=== PATIENT | female | born 1985 | race Caucasian/White ===

== ENCOUNTER 2016-12-23 12:35 | Emergency (ER) | payer MEDICAID, OTHER ==
--- NOTE | 2016-12-23 12:56 | ERNOTE ---
Date of Service: 12/23/16 Time Seen by Provider: 12/23/16 12:54 Stated Complaint: ARM PAIN/SIDE PAIN Source: patient Exam Limitations: no limitations Immunizations: IMMUNIZATION HX Immunizations Up to Date Yes History of Influenza Vaccine Yes Hx Pneumococcal Vaccination No Allergies/Adverse Reactions: Allergies Sulfa (Sulfonamide Antibiotics) [Sulfa(Sulfonamide Antibiotics)] Allergy ( Verified 12/23/16 12:44) swelling Home Medications: HOME MEDICATIONS Budesonide/Formoterol Fumarate [Symbicort 160-4.5 Mcg Inhaler] 6 gm IH 12/23/16 [Last Taken Unknown] - History of Present Ilness Narrative: c.c. = cough and sore throat with L. sided rib and abdominal soreness. Cough and sore throat with some increased wheeze started yesterday. No known fever. She is on daily symbicort and this a.m. also used her albuterol mdi because she felt tight. 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 lateral , mid., chest pain that was worse with deep breath, or cough, or turning or twisting. It lasted 20 mins and is gone now except for when she coughs. Her cough is tight , n on productive. She says she also has had some runny nose with some sneezing since yesterday. She denies known seasonal allergies/hay fever . She denies other medical problems. She is not a smoker. Timing: gone now Review of Systems - Review of Systems Constitutional: Present: See HPI ENT: Present: nose congestion, nasal drainage, sore throat Respiratory: Present: cough, wheezing - mild Cardiology: Present: no symptoms reported, See HPI, chest pain - chest wall/ pleuritic pain Gastrointestinal/Abdominal: Present: no symptoms reported Genitourinary: Present: no symptoms reported Musculoskeletal: Present: See HPI Skin: Present: no symptoms reported - Patient's Past Medical History Patient History - Medical: Obesity Patient History - Cardiac/Respiratory: Asthma Patient History - Cancer: No Hx of Cancer Patient History - Surgical Procedures: Tubal Ligation, T & A Patient History - Other: None LMP (females 10-50): last week - Family History Mother Family History - Medical: No pertinent hx Father Family History - Cardiac/Respiratory: CVA/Stroke, Myocardial Infarction - Social History Living Situations: home Abuse History: No History of abuse Psych History: No pertinent hx Alcohol Use: none Drug Use: none - Immunizations Immunizations Up to Date: Yes Hx Pneumococcal Vaccination: No History of Influenza Vaccine: Yes Physical Exam - Physical Exam General Appearance: Present: wd/wn, alert, no apparent distress - pt is morbidly obese young lady, a & o & coop with red nose and occ harsh tight sounding cough but no dyspnea or tachypnea. VSS with elevated bp Eye Exam: Normal inspection: bilateral Ears, Nose, Throat: Present: nasal congestion, normal pharynx, other - red infalmed turbinates with mild clear nasal drainage. . Absent: pharyngeal erythema, pharyngeal swelling, tonsillar exudate, tonsillar swelling, dry mucous membranes Respiratory: Present: no respiratory distress, no accessory muscle use, wheezing - mild bibasilar exp wheeze . she also has mild left ant. lateral mid chest wall tendernesss to palpation and with cough. Cardiovascular/Chest: Present: regular rate, rhythm, no murmur Neurological Exam: Present: alert, oriented ED Progress - Results and Orders Patient's Lab Results:: I have reviewed the patient's lab results. Results and Orders: strep screen is negative. - Vital Signs Patient's Vital Signs:: I have reviewed the patient's vital signs. Vital Signs: Vital Signs 12/23/16 12/23/16 12:39 12:46 Temperature 36.8 C Pulse Rate 81 78 Respiratory 16 16 Rate Blood Pressure 151/79 O2 Sat by Pulse 98 97 Oximetry - Progress/Reassessment Chief Complaint: Upper Respiratory Symptoms Plan - Plan Plan: ADVISED HER TO WATCH HER BLOOD PRESSURE BUT TO BE SURE THAT WHO EVER CHECKS IT USES A LARGE ENOUGH CUFF. Departure - Departure Clinical Impression: Pain of anterior chest wall with respiration Upper respiratory infection Qualifiers: URI type: acute nasopharyngitis (common cold) Qualified Code(s): J00 - Acute nasopharyngitis [common cold] Asthma Qualifiers: Asthma severity: mild intermittent Asthma complication type: with acute exacerbation Qualified Code(s): J45.21 - Mild intermittent asthma with (acute) exacerbation Disposition: Home Follow Up Needed Condition: Good Instructions: Asthma, Acute Bronchospasm, Chest Wall Pain, [id number], Upper Respiratory Infection, Adult, [id number], Sore Throat, [id number] Additional Instructions: CONTINUE YOUR SYMBICORT BEFORE. USE YOUR RESCUE INHALER , 2 PUFFS EVERY 4-6 HOURS UNTIL NO WHEEZE OR TIGHTNESS. TRIAL OF TYLENOL OR MOTRIN OR ALEVE FOR CHEST WALL SORENESS AAS WELL WARM COMPRESS TO SORE AREA IF NEEDED. IF COUGHING , USE A PILLOW OR BLANKET , SPLINTED ( HELD AGAINST SORE RIB AREA) TO HELP CONTROL CHEST WALL DISCOMFORT. RETURN OR SEE FAMILY DOCTOR IF WORSE OR NOT IMPROVING ESPECIALLY IF FEVER DEVELOPS. THE STREP SCREEN IS NEGATIVE BUT WE WILL CHECK FURTHER BY DOING A STREP CULTURE AND IF THAT TURNS POSITIVE, WE WILL CALL YOU. GARGLE WITH WARM SALT WATER , USE CHLORASEPTIC SPRAY OR LOZENGES FOR SORE THROAT. Referrals: Idris Washington, [Primary Care Provider] -
--- OUTSIDE RECORDS SUMMARY | 2016-12-23 13:24 | XMS REPORT | Continuity of Care Document ---
:1985 Author Organization [facility] ([facility]) Address [place] [address] Phone [phone] Care Team Providers Name Role Phone Idris Washington Primary Care Provider [phone] Source Comments This disclosure is being made pursuant to the Care Everywhere program, applicable federal and state laws, and may not contain all informaitonavailable regarding this patient.[facility] ([facility]) Active Allergies and Adverse Reactions Allergen Noted Date Severity Reactions Comments Sulfa (Sulfonamide 11/14/2010 Urticaria (Hives) Reaction to sulfa as a Antibiotics) child. Current Medications Prescription Sig. Disp. Refills Start Date End Date Status albuterol (PROAIR Use 1-2 Puffs by 8.5 g 11 11/28/2015 Active HFA) 90 mcg/Actuation inhalation every 4 inhaler hours as needed. predniSONE 20 mg Take 2 tablets (40 10 tablet 0 09/30/2016 Active tablet mg total) by mouth daily. budesonide-formoterol Use 2 Puffs by 10.2 g 11 10/02/2016 Active (SYMBICORT) 160-4.5 inhalation 2 times mcg/Actuation inhaler daily. Active Problems Not on file Most Recent Encounters Date Type Specialty Providers Description 11/25/2016 Office Visit Med Pulmonary Maria Fernanda Daly, Chief Comp: Patient MD Reported Reason For Visit 10/02/2016 Telephone Med Pulmonary Maria Fernanda Daly, Dx: Moderate MD persistent asthma with acute exacerbation (Primary Dx) 09/30/2016 Office Visit Pathology Maria Fernanda Daly, Dx: Mild persistent MD asthma with status Lab Services, Pfp asthmaticus 09/30/2016 Office Visit Med Pulmonary Default, Other Dx: Mild persistent Billg - Defo asthma with status Maria Fernanda Daly asthmaticus (Primary MD Dx) 09/30/2016 Hospital Encounter Respiratory Therapy Default, Other Chief Comp : Patient Billg - Defo Reported Reason For Jenelle Goldstein, Lisa PARK Immunizations Name Dates Previously Given Next Due Influenza, unspecified 05/16/2015 Social History Tobacco Use Types Packs/Day Years Used Date Never Smoker Smokeless Tobacco: Never Used Alcohol Use Drinks/Week oz/Week Comments No Last Filed Vital Signs Vital Sign Reading Time Taken Blood Pressure 196/92 09/30/2016 10:58 AM [employer] 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 Pulse 81 09/30/2016 10:58 AM [employer] 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 Temperature 37.2 C (99 F) 09/30/2016 10:58 AM [employer] 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 Respiratory Rate 16 09/30/2016 10:58 AM [employer] 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 Height 1.7 m (5' 6.93") 09/30/2016 10:58 AM AMM[employer] 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 Weight 205 kg (451 lb 15.1 oz) 09/30/2016 10:58 AM AMM[employer]ITION 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 Body Mass Index 70.93 09/30/2016 10:58 AM AMM[employer]ITION 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 Oxygen Saturation 97% 09/30/2016 10:58 AM [employer] 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 Plan of Care Date Type Specialty Providers Description 12/30/2016 Appointment Med Pulmonary Maria Fernanda Daly MD Chief Comp: Patient [address] Rep[place] [address] [phone] (Fax) Health Maintenance Due Date Last Done Comments Hepatitis B Vaccine (1 of 3 - Primary Series) 1985 Tdap Vaccine 1996 Lipid Disorder Screening 12/22/2003 MMR Vaccine 12/22/2003 Td Vaccine 12/22/2003 Varicella Vaccine (1 of 2 - Adult - No Evidence of 12/22/2003 Immunity) Pneumococcal Vaccine (1 of 1 - PPSV23) 2004 Cervical Cancer Screening 12/22/2015 Influenza Vaccine: Seasonal (Season Ended) 2017 05/16/2015 Results from Last 3 Months DIFFERENTIAL (09/30/2016 12:19 PM) Component Value Range % Neutrophils-Auto Diff 57.0 % Neutrophils-Auto Diff 4510 2282-5653 /MM3 % Lymphocytes-Auto Diff 30.5 % Lymphocytes-Auto Diff 2410 875-3300 /MM3 % Monocytes-Auto Diff 5.9 % Monocytes-Auto Diff 470 130-860 /MM3 % Eosinophils-Auto Diff 5.8 % Eosinophils-Auto Diff 460(H) 40-390 /MM3 % Basophils 0.4 % Basophils-Auto Diff 30 10-136 /MM3 % Immature Granulocytes-Auto Diff 0.4 % Immature Granulocytes-Auto Diff 30 /MM3 Specimen Whole Blood CBC (COMPLETE BLOOD COUNT) (09/30/2016 12:19 PM) Component Value Range WBC Count 7.9 3.7-10.5 K/MM3 RBC Count 4.69 4.00-5.20 M/MM3 Hemoglobin 13.2 11.9-15.5 g/dL Hematocrit 40 35-47 % MCV (Mean Corpuscular Volume) 84 82-99 FL MCH (Mean Corpuscular Hemoglobin) 28 25-35 PG MCHC (Mean Corpuscular Hemoglobin Concentration) 33 32-36 % Platelet Count 328 150-400 K/MM3 MPV (Mean Platelet Volume) 10.2 9.4-12.3 FL RBC Dist Width-STD 42.9 36.4-46.3 FL RBC Distrib Width 14.0 9.0-14.5 % Nucleated RBC 0 /100 WBC Specimen Whole Blood CBC WITH DIFFERENTIAL (09/30/2016 12:19 PM) Specimen Whole Blood Narrative The following orders were created for panel order CBC WITH DIFFERENTIAL. Procedure Abnormality Status --------- ------ CBC (COMPLETE BLOOD COUNT)[[id number]] Final result DIFFERENTIAL[[id number]] AbnormalFinal result Please view results for these tests on the individual orders. IGE (09/30/2016 12:19 PM) Component Value Range IgE 71.4 0.0-100.0 IU/mL Specimen Blood PULMONARY FUNCTION TEST (PFT) (09/30/2016 10:14 AM) Component Value Range FVC Predicted 4.14 0.05-9.99 Liters FVC 3.38 0 - 12 Liters FVC %Predicted 82 0-300 % FVC Post 3.72 0 - 12 Liters FVC % Predicted Post 90 0-300 % FVC % Chng 10 0-300 % FEV1 Predicted 3.47 0.05-9.99 Liters FEV1 2.18 0 - 12 Liters FEV1% Predicted 63 0-300 % FEV1 Post BD 2.64 0 - 12 Liters FEV1 % Pred Post 76 0-300 % FEV1 % Chng 21 0-300 % FEV1/FVC Predicted 84 1-99 % FEV1/FVC 64 0 - 12 % FEV1/FVC Post 71 0 - 12 % FEF 25-75% Predicted 3.63 0-12 L/sec FEF 25-75% 1.25 0-12 L/sec FEF 25-75% %Pre Predicted 34 0-300 % FEF 25-75% Post 1.84 0-12 L/sec FEF 25-75% %Post Predicted 51 0-300 % FEF 25-75% Chng 48 0-300 % PEF Predicted 7.46 0-18 L/sec PEF Pre BD 5.48 0-18 L/sec PEF % Pre Predicted 73 0-300 % PEF Post BD 6.22 0-18 L/sec PEF %Post Predicted 83 0-300 % PEF %CHNG 14 0-300 % PIF PRE BD 4.07 0-18 L/sec PIF POST BD 4.02 0-18 L/sec PIF %CHNG -1 0-300 % FEV6 PRE 3.30 0 - 12 Liters MVV Predicted 139 0-300 L/min VC PREDICTED 4.14 0.05-9.99 Liters TLC Predicted 5.72 0.05-11.99 Liters RV Predicted 1.81 0.05-9.99 Liters RV/TLC Predicted 30 0-300 % FRC PL Predicted 0.82 0.05-9.99 Liters DLCO Predicted 26.1 0.05-99.99 mL/mmHg/min DLCO ADJ Predicted 26.1 1-2 mL/mmHg/min PI MAX Predicted 89 cmH2O
[2016-12-23 13:49] VITALS: BP 146/100
== END 2016-12-23 13:46 | disposition home or self-care (01) ==
LOC: ER 12:35
DX: R07.89 Other chest pain (principal); J00 Acute nasopharyngitis [common cold]; J45.21 Mild intermittent asthma with (acute) exacerbation

== ENCOUNTER 2018-02-27 12:21 | Observation (INO) ==
[2018-02-27] MEDS ORDERED: ALBUTEROL SULFATE/IPRATROPIUM 3 ML NEBU IH ONE ×3 (12:34→13:30)
--- NOTE | 2018-02-27 12:43 | ERNOTE ---
Date of Service: 02/27/18 Time Seen by Provider: 02/27/18 12:32 Stated Complaint: TROUBLE BREATHING Presenting Symptoms:: cough Source: patient Immunizations: IMMUNIZATION HX Immunizations Up to Date Yes History of Influenza Vaccine Yes Hx Pneumococcal Vaccination No Allergies/Adverse Reactions: Allergies Sulfa (Sulfonamide Antibiotics) [Sulfa(Sulfonamide Antibiotics)] Allergy ( Verified 02/27/18 12:28) swelling Home Medications: HOME MEDICATIONS Budesonide/Formoterol Fumarate [Symbicort 160-4.5 Mcg Inhaler] 6 gm IH DAILY 06/01 [Last Taken 02/27/18] Albuterol Sulfate [Ventolin Hfa] 1 puff IH PRN PRN 02/19/17 [Last Taken 02/27/18 ] Albuterol Sulfate [Albuterol Sulfate 2.5 MG/3 ML] 2.5 mg IH Q4H 10 Days #50 vial.neb 02/27/18 [Last Taken Unknown] Azithromycin [Zithromax] 500 mg PO NOW #6 tab 02/27/18 [Last Taken Unknown] predniSONE [Prednisone] 50 mg PO DAILY #5 tab 02/27/18 [Last Taken Unknown] - History of Present Ilness Narrative: 2-year-old female presents to the emergency room for wheezing and cough. Patient states that she has a history of asthma and today she has used her inhaler twice and has had no results. Patient states the symptoms started this morning. Patient states that normally her inhaler does help her. Date (Duration): 02/27/18 Timing: getting worse, intermittent Severity: mild Frequency/Possible Cause: Reports: occasional episodes Modifying Factors - Improves: Reports: nothing Associated Symptoms: Reports: cough, wheezing. Denies: chest pain/soreness, shortness of breath Review of Systems - Review of Systems Constitutional: Present: no symptoms reported EYE: Present: no symptoms reported ENT: Present: no symptoms reported Respiratory: Present: See HPI, cough, wheezing Cardiology: Present: no symptoms reported Gastrointestinal/Abdominal: Present: no symptoms reported Genitourinary: Present: no symptoms reported Musculoskeletal: Present: no symptoms reported Skin: Present: no symptoms reported Neurological: Present: no symptoms reported Endocrine: Present: no symptoms reported Hematologic/Lymphatic: Present: no symptoms reported Psych: Present: no symptoms reported All Other Systems: All systems neg except as marked Medical History (Last Updated 02/27/18 @ 12:30 by Charlee Christopher RN) Asthma History of cholecystectomy Surgical History: Surgical History (Last Updated 02/27/18 @ 12:30 by Charlee Christopher RN) Status post tendon repair Social History: Preferred Language French Do you have any denominational or No cultural preference? Smoking Status Never smoker Abuse History No History of abuse Psych History No pertinent hx Alcohol Use none Drug Use none Physical Exam - Physical Exam Narrative: Patients breathing is nonlabored but she does have expiratory and inspiratory wheezing throughout. The rest of her exam is unremarkable General Appearance: Present: wd/wn, alert, no apparent distress Head Exam: Present: normal inspection, no evidence of injury Eye Exam: Normal inspection: bilateral, PERRL: bilateral Ears, Nose, Throat: Present: normal ENT inspection, normal pharynx Neck: Present: normal inspection, nontender Respiratory: Present: no respiratory distress, no accessory muscle use, chest nontender, wheezing Cardiovascular/Chest: Present: regular rate, rhythm Gastrointestinal/Abdominal: Present: normal bowel sounds, nontender, nondistended, soft Back Exam: Present: normal inspection, normal range of motion, no CVA tenderness , no vertebral tenderness Extremity Exam: Present: normal inspection, non-tender, normal range of motion, no edema Neurological Exam: Present: alert, oriented, normal mood/affect, no motor/ sensory deficits Skin Exam: Present: normal color, warm/dry Lymphatic Exam: Present: no adenopathy ED Progress - Results and Orders Patient's Lab Results:: I have reviewed the patient's lab results. - Vital Signs Patient's Vital Signs:: I have reviewed the patient's vital signs. Vital Signs: Vital Signs 02/27/18 12:23 02/27/18 12:36 Temperature 36.6 C Pulse Rate 75 76 Respiratory Rate 20 20 Blood Pressure 173/107 H O2 Sat by Pulse Oximetry 95 95 - X-Ray X-Ray #1 X-Ray: chest Interpretation: Reviewed by me X-ray Comments: no acute process - Progress/Reassessment Chief Complaint: Upper Respiratory Symptoms Plan - Plan Plan: Patient still continues to have expiratory wheezes. States she feels like her chest is still rattling. After speaking with Dr. Washington he agrees patient to be admitted for abscess with [id number] neb treatments and will follow her there. Patient agrees to admission. Departure Clinical Impression: Bronchitis with asthma, acute - Departure Disposition: Still a patient Condition: Fair
[2018-02-27] MEDS ORDERED: METHYLPREDNISOLONE SOD SUCC/PF 40 MG/ML VIAL IM ONE (13:31)
[2018-02-27] MEDS ORDERED: METHYLPREDNISOLONE SOD SUCC/PF 125 MG/2 ML VIAL ONE (13:35)
[2018-02-27] MEDS ORDERED: ALBUTEROL SULFATE 2.5 MG/0.5 ML VIAL.NEB IH ONE ×3 (13:49→13:57)
[2018-02-27] MEDS ORDERED: AZITHROMYCIN 250 MG TABLET PO ONE (14:36)
[2018-02-27] MEDS ORDERED: AZITHROMYCIN 250 MG TABLET ONE (15:07)
--- NOTE | 2018-02-27 18:46 | HP ---
Chief Complaint - Chief Complaint Date of Service: 02/27/18 Time of Service: 16:00 Chief Complaint: Shortness of breath History of Present Illness: Vilma is a 32 yo female with asthma. She began having shortness of breath and wheeze at home but her inhalers were not helping. She presented to the [facility] ER for evaluation. She denies any recent change to activity, diet, or medications. No sick contacts or recent travel. Breathing treatments helped in the Er but she still felt unsafe going home. Medical History (Last Updated 03/04/18 @ 16:40 by Vee Garcia) Asthma History of cholecystectomy Morbid obesity COPD (chronic obstructive pulmonary disease) Biliary colic Onset Date: ~10/31/17 Pain of left calf Onset Date: ~11/09/15 Umbilical hernia Surgical History: Surgical History (Last Updated 03/04/18 @ 16:40 by Vee Garcia) History of tonsillectomy and adenoidectomy Status post tendon repair Elective Onset Date: ~09/27/09 H/O hand surgery Onset Date: ~01/19/18 H/O tubal ligation Onset Date: ~02/2012 [place] teeth extracted Onset Date: ~1998 H/O vaginal surgery Onset Date: ~2000 Family History: Family History (Last Updated 02/27/18 @ 16:41 by Delmi Alonso RN) Father Myocardial infarction CVA (cerebral vascular accident) Hypertension Asthma Mother Hypertension Arrhythmia Brother Asthma Aunt Asthma Social History: Patient Lives/Resources Home Utilized 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 Smoking Status Never smoker Have you smoked in the past 12 No months Abuse History No History of abuse Psych History No pertinent hx Alcohol Use none Drug Use none Review Of Systems (GEN) - Review of Systems Generalized/Overall Review: Present: Weakness, Fever. Absent: Chills EENTM: Present: No Symptoms Reported Respiratory: Present: Cough, Shortness of Breath, Wheezing Cardiac: Present: Edema. Absent: Chest Pain, Palpitations Abdominal: Present: No Symptoms Reported Musculoskeletal: Present: No Symptoms Reported Neurological: Present: No Symptoms Reported Skin: Present: No Symptoms Reported Endocrine: Present: No Symptoms Reported Immunizations: IMMUNIZATION HX Immunizations Up to Date Yes History of Influenza Vaccine Yes Hx Pneumococcal Vaccination No Allergies/Adverse Reactions: Allergies Allergy/AdvReac Type Severity Reaction Status Date / Time Sulfa (Sulfonamide Allergy Verified 02/27/18 16:35 Antibiotics) [Sulfa(Sulfonamide Antibiotics)] Home Medications: HOME MEDICATIONS Budesonide/Formoterol Fumarate [Symbicort 160-4.5 Mcg Inhaler] 2 puff IH DAILY 12/23/16 [Last Taken 02/27/18] Albuterol Sulfate [Ventolin Hfa] 1 puff IH PRN PRN 02/19/17 [Last Taken 02/27/18 ] Albuterol Sulfate [Albuterol Sulfate 2.5 MG/3 ML] 2.5 mg IH Q4H 10 Days #50 vial.neb 02/27/18 [Last Taken Unknown] Azithromycin [Zithromax] 250 mg PO DAILY #3 tab 02/28/18 [Last Taken Unknown] predniSONE [Prednisone] 2 tab PO DAILY #14 tab 02/28/18 [Last Taken Unknown] fluconazole 150 mg tablet 150 mg PO ONCE #10 tab 03/03/18 [Last Taken Unknown] Exam - Exam Vital Signs: Vital Signs - Last Taken Temp 37.0 C 02/27/18 16:43 Pulse 88 02/27/18 16:43 Resp 16 02/27/18 16:43 BP 154/86 H 02/27/18 16:43 Pulse Ox 97 02/27/18 16:43 Constitutional: Present: Alert, Oriented x3, Cooperative ENT Exam: Present: hearing grossly normal Eye Exam: bilateral eye: normal inspection Respiratory: Present: decreased breath sounds, wheezing Cardiovascular/Chest: Present: no murmur, tachycardia Abdomen: Present: Normal bowel sounds, soft, nontender, nondistended Skin Exam: Present: normal color, warm/dry, no cyanosis Lymphatic: Present: no adenopathy Appearance: Present: appropriate appearance, appropriate insight Diagnostic Studies: Laboratory Results Urine HCG, Qual Negative (NEGATIVE) 02/27/18 13:00 Assessment/Plan - Narrative Narrative: Vilma is a 32 yo female with acute exacerbation of asthma secondary to bronchitis. Will treat with breathing treatments, steroids, and antibiotics. Will admit to observation and monitor overnight. Plan to discharge to home tomorrow. - Assessment/Plan (1) Bronchitis with asthma, acute Problem: Acute
[2018-02-27] MEDS: ALBUTEROL SULFATE 2.5 MG/0.5 ML VIAL.NEB IH SCH ×2 (18:57→22:06)
[2018-02-27] MEDS: ACETAMINOPHEN 500 MG TABLET PO PRN (21:18)
[2018-02-28] MEDS: ALBUTEROL SULFATE 2.5 MG/0.5 ML VIAL.NEB IH SCH ×4 (02:45→14:35)
[2018-02-28] MEDS: ACETAMINOPHEN 500 MG TABLET PO PRN ×2 (04:35→11:33)
[2018-02-28] MEDS ORDERED: AZITHROMYCIN 250 MG TABLET PO SCH (09:00)
--- NOTE | 2018-02-28 13:30 | DS ---
(1) Bronchitis with asthma, acute Problem: Acute Description of Stay: Vilma is a 32 yo female admitted with asthma exacerbation secondary to bronchitis. She was treated with steroids, azithromycin, and scheduled albuterol nebulizers every 4 hours. She improved and is feeling well enough for home discharge. She will be discharged to home today on prednisone 40mg daily x 7 days and will complete 3 more days of azithromycin. She will follow up with me in clinic in 2 weeks. Procedures Performed: none Results and Findings: Lab Pending Results 02/27/18 13:00 Urine HCG, Qual Negative Discharge Location: Home Disposition: Home self-care Condition: Good Discharge Activity: Activity as tolerated Discharge Diet: General/regular food Referrals: Idris Washington DO [Primary Care Provider] - Two Weeks Problem Oriented Discharge Instructions to Patient/Family: Asthma, Acute Bronchospasm Prescriptions (Any new or edited meds): Azithromycin [Zithromax] 250 mg PO DAILY #3 tab predniSONE [Prednisone] 2 tab PO DAILY #14 tab Complete Home Medications List: Complete Home Medication List: Budesonide/Formoterol Fumarate [Symbicort 160-4.5 Mcg Inhaler] 2 puff IH DAILY 12/23/16 Albuterol Sulfate [Ventolin Hfa] 1 puff IH PRN PRN 02/19/17 Albuterol Sulfate [Albuterol Sulfate 2.5 MG/3 ML] 2.5 mg IH Q4H 10 Days #50 vial.neb 02/27/18 Azithromycin [Zithromax] 250 mg PO DAILY #3 tab 02/28/18 predniSONE [Prednisone] 2 tab PO DAILY #14 tab 02/28/18
[2018-02-28 14:21] VITALS: BP 143/78
== END 2018-02-28 14:50 | disposition home or self-care (01) ==
LOC: MS 12:21 → ER 12:21 → MS 16:00
PROVIDERS: ADMIT Family Medicine; ATTEND Family Medicine
CPT/HCPCS: 71020; 71046; 84703; 94640; 94664; 94760; 96372; 99284; G0378

== ENCOUNTER 2018-08-30 17:24 | Observation (INO) ==
[2018-08-30] MEDS ORDERED: METHYLPREDNISOLONE SOD SUCC/PF 125 MG/2 ML VIAL IV ONE (17:39)
[2018-08-30] MEDS ORDERED: ALBUTEROL SULFATE/IPRATROPIUM 3 ML NEBU IH ONE ×2 (17:39→22:12)
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
[2018-08-30 18:23] LABS: Hematocrit 37.1 % (37.0-47.0); Hemoglobin 12.3 gm/dL (12.5-16.0); Mean Cell Volume 85.5 fl (78-100); Mean Corpuscular Hemoglobin 28.3 pg (27-31); Mean Corpuscular Hgb Conc 33.2 g/dl (32-36); Mean Platelet Volume 9.9 fl (8-12.5); Neutrophil # 5.6 K/mm3 (1.3-6.0); Neutrophil % 60.5 % (42-75.0); Platelet Count 308 K/mm3 (150-450); Red Blood Count 4.34 M/mm3 (4.2-5.4); Red Cell Distribution Width 13.2 % (11.5-14.0); White Blood Count 9.2 K/mm3 (4.0-10.5)
[2018-08-30 18:36] LABS: Albumin * 3.7 gm/dl (3.4-5.0); Anion Gap 13.7 mmol/L (6.8-13.8); BUN/Creatinine Ratio 29.5 (9.0-21.6); Bilirubin, Total 0.3 mg/dL (0.0-1.1); Ca. Corrected For Albumin 9.2 mg/dL (8.4-10.2); Calcium * 9.3 mg/dL (7.9-10.9); Carbon Dioxide 28.2 mmol/L (24-32.6); Potassium 3.9 mmol/L (3.4-4.6); Total Protein 7.6 gm/dL (6.2-8.2)
[2018-08-30] MEDS ORDERED: LEVALBUTEROL HCL 1.25 MG/3 ML AMPUL IH ONE (18:49)
[2018-08-30] MEDS ORDERED: ALBUTEROL SULFATE 200 PUFF INHALER IH PRN (20:12)
[2018-08-30] MEDS ORDERED: NON-FORMULARY 1 DOSE DOSE (Albuterol Sulfate [Albuterol Sulfate 2.5 Mg/3 Ml] 2.5 MG) IH SCH (20:15)
[2018-08-30] MEDS: ALBUTEROL SULFATE/IPRATROPIUM 3 ML NEBU IH SCH (22:25)
[2018-08-30] MEDS ORDERED: ALBUTEROL SULFATE 2.5 MG/0.5 ML VIAL.NEB IH PRN ×2 (22:31→22:45)
[2018-08-30] MEDS ORDERED: MONTELUKAST SODIUM 10 MG TABLET PO SCH (22:45)
[2018-08-30] MEDS: LORATADINE 10 MG TABLET PO SCH (22:58)
[2018-08-30] MEDS ORDERED: ALBUTEROL SULFATE 2.5 MG/0.5 ML VIAL.NEB IH SCH (23:00)
[2018-08-30] MEDS: FAMOTIDINE 20 MG TABLET PO SCH (23:26)
[2018-08-30] MEDS: METHYLPREDNISOLONE SOD SUCC/PF 125 MG/2 ML VIAL IV SCH (23:55)
[2018-08-31] MEDS: ALBUTEROL SULFATE/IPRATROPIUM 3 ML NEBU IH SCH ×4 (02:21→14:14)
[2018-08-31] MEDS: METHYLPREDNISOLONE SOD SUCC/PF 125 MG/2 ML VIAL IV SCH ×2 (05:35→12:23)
[2018-08-31] MEDS ORDERED: FLUCONAZOLE 150 MG TABLET PO SCH (09:00)
[2018-08-31] MEDS ORDERED: FLUTICASONE PROPION/SALMETEROL 14 PUFF DISK.W.DEV IH SCH (09:00)
[2018-08-31] MEDS ORDERED: KETOROLAC TROMETHAMINE 60 MG/2 ML VIAL IM ONE (09:45)
[2018-08-31] MEDS: FAMOTIDINE 20 MG TABLET PO SCH (10:16)
[2018-08-31] MEDS: LORATADINE 10 MG TABLET PO SCH (10:16)
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
[2018-08-31] MEDS ORDERED: ACETAMINOPHEN 500 MG TABLET PO PRN (13:53)
[2018-08-31] MEDS ORDERED: ONDANSETRON HCL/PF 2 MG/ML VIAL IV ONE (13:54)
--- NOTE | 2018-08-31 16:20 | DS ---
(1) Asthma with acute exacerbation in adult Problem: Resolved Qualifiers: Asthma severity: unspecified severity Asthma persistence: unspecified Qualified Code(s): J45.901 - Unspecified asthma with (acute) exacerbation Description of Stay: Vilma is a 32 yo female that was admitted for asthma exacerbation. She was treated with steroids and breathing treatments and improved. She was able to be discharged to home with continued steroids and azithromycin for inflammation (pulmonary). She will follow up in 1-2 weeks in clinic. There was no hypoxia seen in the ER or on the floor. She had an outpatient knee MRI previously scheduled, but since she was admitted during this time was unable to get the MRI performed. It will be rescheduled as outpatient. Procedures Performed: none Results and Findings: Lab Pending Results 08/30/18 18:12: WBC 9.2, RBC 4.34, Hgb 12.3 L, Hct 37.1, MCV 85.5, MCH 28.3, MCHC 33.2, RDW 13.2, Plt Count 308, MPV 9.9, Immature Gran % (Auto) 0.40, Immature Gran # (Auto) 0.04 H, Neutrophils % 60.5, Lymphocytes % 29.8, Monocytes % 5.5, Eosinophils % 3.6 H, Basophils % 0.2, Nucleated RBC % 0.0, Neutrophils # 5.6, Lymphocytes # 2.73, Monocytes # 0.5, Eosinophils # 0.3, Absolute Basophils 0.0 08/30/18 18:12: Sodium 139, Plasma Sodium 139, Potassium 3.9, Chloride 101, Carbon Dioxide 28.2, Anion Gap 13.7, BUN 18, Creatinine 0.61, Est GFR (Non-Af Amer) 121, BUN/Creatinine Ratio 29.5 H, Random Glucose 90, Calcium 9.3, Calcium Adj for Albumin 9.2, Total Bilirubin 0.3, AST 16, ALT 17 L, Alkaline Phosphatase 99, Total Protein 7.6, Albumin 3.7 Discharge Location: Home Disposition: Home self-care Condition: Good Discharge Activity: Activity as tolerated Discharge Diet: General/regular food Referrals: Idris Washington DO [Primary Care Provider] - One Week Problem Oriented Discharge Instructions to Patient/Family: Asthma, Adult, [id number] Additional Patient Instructions (free text): MRI rescheduled to Sep.05 at 2pm. Follow up with Dr. Washington on 09-07-18 at 10:00am. Prescriptions (Any new or edited meds): Azithromycin 250 mg PO DAILY #6 tab predniSONE [Prednisone] 2 tab PO DAILY #25 tab Complete Home Medications List: Complete Home Medication List: albuterol sulfate HFA 90 mcg/actuation aerosol inhaler 2 puff IH Q6H PRN #8.5 g 03/31/18 budesonide-formoterol HFA 160 mcg-4.5 mcg/actuation aerosol inhaler 2 puff IH DAILY #10.2 g 03/31/18 Albuterol Sulfate 2.5 mg INHALATION Q4H PRN 08/30/18 Azithromycin 250 mg PO DAILY #6 tab 08/31/18 predniSONE [Prednisone] 2 tab PO DAILY #25 tab 08/31/18
[2018-08-31 17:56] VITALS: BP 157/79
== END 2018-08-31 16:45 | disposition home or self-care (01) ==
LOC: ER 17:24 → MS 17:24
PROVIDERS: ADMIT Family Medicine; ATTEND Family Medicine
DX: J45.901 Unspecified asthma with (acute) exacerbation
CPT/HCPCS: 36415; 71020; 71046; 80053; 85025; 93005; 94640; 94664; 96372; 96374; 96375; 99285; G0378; J2405